=== PATIENT | female | born 1945 | race Asian ===

== ENCOUNTER 2017-12-25 17:04 | Inpatient (IN) | payer MEDICARE, OTHER ==
[~2017-12-25] VITALS: Ht 162.6 cm; Wt 93.9 kg
[2017-12-25] MEDS ORDERED: ALENDRONAT70 MG/75 M PO (21:25)
[2017-12-25] MEDS ORDERED: CALCIUM + D SO1 EACH PO (21:48)
[2017-12-25] MEDS ORDERED: AMLODIPINE BESYL5 MG ORAL (21:48)
[2017-12-25] MEDS ORDERED: VITAMIN B-12500 MCG ORAL (21:48)
[2017-12-25] MEDS ORDERED: BACLOFEN10 MG ORAL (21:48)
[2017-12-25] MEDS ORDERED: IBUPROFEN200 M2 ORAL (21:48)
[2017-12-25] MEDS ORDERED: ARTIFICIAL TEA1 EAC2 OP (21:48)
[2017-12-25] MEDS ORDERED: GABAPENTIN300 MG ORAL (21:48)
[2017-12-25] MEDS ORDERED: ALPHAGAN P5 M2 OP (21:48)
[2017-12-25] MEDS ORDERED: BENAZEPRIL HCL20 MG ORAL (21:48)
[2017-12-25] MEDS ORDERED: ASPIRIN-LOW81 MG ORAL (21:48)
[2017-12-25] MEDS ORDERED: BEPREVE10 ML OP (21:48)
[2017-12-25] MEDS ORDERED: FERROUS SULFAT325 M2 ORAL (21:48)
[2017-12-25] MEDS ORDERED: MULTIVITAMINS1 EAC2 ORAL (21:49)
[2017-12-25] MEDS ORDERED: METFORMIN HCL1000 M1 ORAL (21:49)
[2017-12-25] MEDS ORDERED: OXYBUTYNIN CHLO10 MG PO (21:49)
[2017-12-25] MEDS ORDERED: LOTEMAX1 DROP OP (21:49)
[2017-12-25] MEDS ORDERED: THIAMINE HCL50 MG PO (21:49)
[2017-12-25] MEDS ORDERED: OMEPRAZOLE10 M1 ORAL (21:49)
[2017-12-25 23:09] LABS: ANION GAP 9 mmol/L (5-15); BLOOD UREA NITROGEN 35 mg/dL (7-18); CALCIUM 9.7 MG/DL (8.5-10.1); CARBON DIOXIDE 24 MMOL/L (21-32); CHLORIDE 109 MMOL/L (98-107); CREATININE 1.5 MG/DL (0.55-1.30); POTASSIUM 3.9 MMOL/L (3.5-5.1); SODIUM 142 MMOL/L (136-145)
[2017-12-25 23:15] LABS: BASOPHILS % (AUTO) 1.4 % (0.0-2.0); EOSINOPHILS % (AUTO) 5.1 % (0.0-3.0); HEMATOCRIT 36.3 % (37.0-47.0); HEMOGLOBIN 12.4 G/DL (12.0-16.0); LYMPHOCYTES % (AUTO) 24.6 % (20.0-45.0); MEAN CORPUSCULAR VOLUME 86 FL (80-99); NEUTROPHILS % (AUTO) 60.9 % (45.0-75.0); PLATELET COUNT 276 K/UL (150-450); RED BLOOD COUNT 4.24 M/UL (4.20-5.40); RED CELL DISTRIBUTION WIDTH 12.1 % (11.6-14.8); WHITE BLOOD COUNT 9.4 K/UL (4.8-10.8)
[2017-12-25 23:16] LABS: ALANINE AMINOTRANSFERASE 11 U/L (12-78); ALBUMIN 3.2 G/DL (3.4-5.0); ALBUMIN/GLOBULIN RATIO 0.6 (1.0-2.7); ALKALINE PHOSPHATASE 48 U/L (46-116); ASPARTATE AMINO TRANSFERASE 14 U/L (15-37); BILIRUBIN,TOTAL 0.2 MG/DL (0.2-1.0)
[2017-12-26] VITALS: BP 137/68
[2017-12-26 04:00] VITALS: BP 124/72
[2017-12-26] MEDS: NovoLOG Insulin Flexpen SUBQ SCH ×4 (06:07→20:57)
[2017-12-26 08:00] VITALS: BP 120/75
[2017-12-26] MEDS: metFORMIN 500mg tab ORAL SCH ×2 (09:11→17:46)
[2017-12-26] MEDS: Aspirin EC 81mg tab ORAL SCH (09:14)
[2017-12-26] MEDS: Benazepril 10mg tab ORAL SCH (09:15)
[2017-12-26] MEDS: Vitamin B-12 100mcg tab ORAL SCH (09:15)
[2017-12-26] MEDS: Thiamine 100mg tab ORAL SCH (09:15)
[2017-12-26] MEDS: Brimonidine 0.2% Opth Sol BOTH EYES SCH ×2 (09:16→17:47)
[2017-12-26] MEDS: Calcium Carbonate 500mg w/Vit D 200iu tab ORAL SCH ×2 (09:16→17:46)
[2017-12-26] MEDS: Artificial Tears 1.4% Op Soln BOTH EYES PRN ×2 (09:20→17:46)
[2017-12-26 12:00] VITALS: BP 111/65
[2017-12-26 16:00] VITALS: BP_SYST 109; BP_SYST 149; BP_DIAS 59; BP_DIAS 76
--- NOTE | 2017-12-26 16:50 | Cardiology Report ---
APPROVED REPORT EXAM: Two-dimensional and M-mode echocardiogram with Doppler and color Doppler. INDICATION Chest Pain M-Mode DIMENSIONS IVSd1.7 (0.7-1.1cm)Left Atrium (MM)4.0 (1.6-4.0cm) LVDd4.5 (3.5-5.6cm)Aortic Root3.2 (2.0-3.7cm) PWd1.4 (0.7-1.1cm)Aortic Cusp Exc.1.9 (1.5-2.0cm) IVSs1.7 cm LVDs3.2 (2.5-4.0cm) PWs1.3 cm Normal left ventricular chamber size, systolic function and wall motion. Left ventricular ejection fraction estimated to be 55-60 %. No left ventricular hypertrophy . No evidence of pericardial effusion. All other cardiac chamber sizes are within normal limits. Focal aortic valve sclerosis with adequate cusp excursion. Thickened mitral valve leaflets with normal excursion. Mitral annulus and aortic root calcification. Normal pulmonic valve structure. Normal tricuspid valve structure. IVC at size 1.5 cm with physiologic collapse. A color flow and spectral Doppler study was performed and revealed: No aortic insufficiency . Trace mitral regurgitation. Mitral diastolic velocities suggest reduced left ventricular relaxation c/w mild LV diastolic dysfunction (Grade I ). Trace tricuspid regurgitation. Tricuspid systolic velocities suggests peak right ventricular systolic pressure of 16 mmHg.
--- NOTE | 2017-12-26 16:56 | Cardiology Report ---
APPROVED REPORT EKG Measurement Heart [id number] Normal sinus rhythm Normal ECG
[2017-12-26 20:00] VITALS: BP 102/58
--- NOTE | 2017-12-26 23:47 | Consultation ---
History of Present Illness General Date patient seen: Dec 26, 2017 Present Illness HPI 72-year-old who came to the hospital for her chest pain and weakness. the pt was paresh make up and was well groomed. the pt stated that she feels anxiety at times. Allergies: Coded Allergies: NO KNOWN ALLERGIES (Verified Allergy, Unknown, 12/25/17) Medication History Scheduled Alendronate Sodium (Alendronate Sodium), 70 MG PO ONCE A WEEK, (Reported) Amlodipine Besylate* (Amlodipine Besylate*), 5 MG ORAL DAILY, (Reported) Aspirin (Aspirin EC), 81 MG ORAL DAILY, (Reported) Baclofen* (Baclofen*), 10 MG ORAL THREE TIMES A DAY, (Reported) Benazepril Hcl* (Benazepril Hcl*), 20 MG ORAL DAILY, (Reported) Bepotastine Besilate (Bepreve), 1 DROP OP DAILY, (Reported) Ca Carbonate/Vitamin D3/Vit K (Calcium + D Soft Chewable Tab), 1 EACH PO BID, ( Reported) Cyanocobalamin (Vitamin B-12)* (Vitamin B-12*), 100 MCG ORAL DAILY, (Reported) Dextran 70/Hypromellose (Artificial Tears), 1 DROP OP Q4HR, (Reported) Ferrous Sulfate (Ferrous Sulfate), 325 MG ORAL DAILY, (Reported) Gabapentin* (Gabapentin*), 300 MG ORAL BEDTIME, (Reported) Ibuprofen (Ibuprofen), 800 MG ORAL Q6HR, (Reported) Loteprednol Etabonate (Lotemax), 1 DROP OP DAILY, (Reported) Metformin Hcl* (Metformin Hcl*), 1,000 MG ORAL BID, (Reported) Multivitamins* (Multivitamins*), 1 TAB ORAL DAILY, (Reported) Omeprazole (Omeprazole), Unknown Dose ORAL DAILY, (Reported) Oxybutynin Chloride (Oxybutynin Chloride Er), 10 MG PO BEDTIME, (Reported) Thiamine Hcl (Thiamine Hcl), 100 MG PO DAILY, (Reported) Miscellaneous Medications Brimonidine Tartrate (Alphagan P), 1 DROP OP, (Reported) Patient History History Provided By: Patient, Medical Record, PMD Healthcare decision maker N Resuscitation status Full Code Advanced Directive on File No Past Medical/Surgical History Past Medical/Surgical History: (1) Abnormal EKG Review of Systems Psychiatric: Reports: prior hx, anxiety Physical Exam General Appearance: WD/WN, no apparent distress, alert, obese Neurologic: oriented x 3, responsive, normal mood/affect Last 24 Hour Vital Signs Date Time Temp Pulse Resp B/P (MAP) Pulse Ox O2 Delivery O2 Flow Rate FiO2 12/26/17 21:00 Room Air 12/26/17 20:00 97.5 65 20 102/58 (73) 93 12/26/17 20:00 67 12/26/17 16:00 68 12/26/17 16:00 97.5 67 18 109/59 (76) 97 12/26/17 12:00 98.1 68 18 111/65 (80) 100 12/26/17 12:00 67 12/26/17 09:15 120/75 12/26/17 09:15 92 120/75 12/26/17 09:00 Room Air 12/26/17 08:00 98.6 92 18 120/75 (90) 100 12/26/17 08:00 74 12/26/17 04:00 96.9 73 16 124/72 (89) 97 12/26/17 04:00 76 12/26/17 00:00 75 12/26/17 00:00 97.2 85 16 137/68 (91) 97 Intake and Output 12/25/17 12/26/17 19:00 07:00 Intake Total 200 ml Balance 200 ml Intake Oral 200 ml # Voids 2 Laboratory Tests Test 12/26/17 07:00 Hemoglobin A1c 7.1 % (4.3-6.0) H Troponin I 0.017 ng/mL (0.000-0.056) Height (Feet): 5 Height (Inches): 4.00 Weight (Pounds): 207 Medications Current Medications Medications (Trade) Dose Ordered Sig/Bonnie Route PRN Reason Start Time Stop Time Status Last Admin Dose Admin Acetaminophen (Tylenol) 650 mg Q4H PRN ORAL Mild Pain/Temp > 100.5 12/25/17 23:45 01/24/18 23:44 Alendronate Sodium (Fosamax) 70 mg QWEEK@0630 ORAL 12/30/17 06:30 01/29/18 06:29 Amlodipine Besylate (Norvasc) 5 mg DAILY ORAL 12/26/17 09:00 01/25/18 08:59 11/14/18 09:15 Artificial Tears (Akwa-Tears) 1 drop Q4H PRN BOTH EYES Dry Eyes 12/26/17 00:15 01/25/18 00:14 12/26/17 17:46 Aspirin (Ecotrin) 81 mg DAILY ORAL 12/26/17 09:00 01/25/18 08:59 12/26/17 09:14 Baclofen (Lioresal) 10 mg THREE TIMES A DAY ORAL 12/26/17 09:00 01/25/18 08:59 12/26/17 17:45 Benazepril HCl (Lotensin) 20 mg DAILY ORAL 12/26/17 09:00 01/25/18 08:59 12/26/17 09:15 Brimonidine Tartrate (Alphagan) 1 drop BID BOTH EYES 12/26/17 09:00 01/25/18 08:59 12/26/17 17:47 Calcium Carbonate (OsCal D) 1 tab BID ORAL 12/26/17 09:00 01/25/18 08:59 12/26/17 17:46 Cyanocobalamin (Vitamin B-12 Tab) 100 mcg DAILY ORAL 12/26/17 09:00 01/25/18 08:59 12/26/17 09:15 Dextrose (Dextrose 50%) 25 ml Q30M PRN IV Hypoglycemia 12/25/17 23:45 01/24/18 23:44 Dextrose (Dextrose 50%) 50 ml Q30M PRN IV Hypoglycemia 12/25/17 23:45 01/24/18 23:44 Ferrous Sulfate (Feosol) 325 mg DAILY ORAL 12/26/17 09:00 01/25/18 08:59 12/26/17 09:11 Gabapentin (Neurontin) 300 mg BEDTIME ORAL 12/26/17 21:00 01/25/18 20:59 12/26/17 20:56 Ibuprofen (Motrin) 800 mg Q6H PRN ORAL Moderate Pain (Pain Scale 4-6) 12/26/17 00:00 01/25/18 00:00 Insulin Aspart (NovoLOG) BEFORE MEALS AND HS SUBQ 12/26/17 06:30 01/25/18 06:29 Metformin HCl (Glucophage) 1,000 mg BID ORAL 12/26/17 09:00 01/25/18 08:59 12/26/17 17:46 Multivitamins (Multivitamins) 1 tab DAILY ORAL 12/26/17 09:00 01/25/18 08:59 12/26/17 09:15 Ondansetron HCl (Zofran) 4 mg Q6H PRN IVP Nausea & Vomiting 12/25/17 23:45 01/24/18 23:44 Oxybutynin Chloride (Ditropan) 5 mg BID ORAL 12/27/17 09:00 01/26/18 08:59 Pantoprazole (Protonix) 40 mg DAILY ORAL 12/26/17 09:00 01/25/18 08:59 12/26/17 09:11 Thiamine HCl (Vitamin B1) 100 mg DAILY ORAL 12/26/17 09:00 01/25/18 08:59 12/26/17 09:15 Assessment/Plan Assessment/Plan Anxiety d/o ativan prn provided ro/Teresa Hua MD Dec 26, 2017 23:47
[2017-12-27] VITALS: BP 100/54
[2017-12-27 04:00] VITALS: BP 115/71
[2017-12-27] MEDS: NovoLOG Insulin Flexpen SUBQ SCH ×4 (05:51→21:00)
--- NOTE | 2017-12-27 06:30 | History and Physical Report ---
DATE OF ADMISSION: 12/25/2017 NOTE: POOR AUDIO HISTORY OF PRESENT ILLNESS: This is a 72-year-old who came to the hospital for her chest pain . The patient is currently alert and awake, comfortable, no distress. PAST MEDICAL HISTORY: Hypertension, CHF, . MEDICATIONS: See the list. PHYSICAL EXAMINATION: GENERAL: This is an elderly female, who is currently sitting in the bed, comfortable, no chest pain. VITAL SIGNS: Blood pressure is 120/70, pulse 74, and respirations 18. SKIN: Good skin turgor. HEENT: NAD. CHEST: Bilaterally clear. CARDIOVASCULAR: Regular rhythm. No gallop. No murmur. ABDOMEN: Soft. Positive bowel sounds. Nontender. EXTREMITIES: CCE. NEUROLOGIC: The patient is in no focal deficit. GENITOURINARY: Deferred. LABORATORY DATA: Her troponins are negative. CBC and CMP also unremarkable. ASSESSMENT: 1. Chest pain. 2. Abnormal EKG. 3. Urinary tract infection. 4. Hypertension. 5. Generalized weakness. PLAN: 1. We will admit on telemetry bed. 2. Rule out of myocardial infarction. 3. Consider Cardiology consult. 4. Check 2D echo and stress test. 5. Discussed with Dr. Winter. Benjy Chester M.D. DR: CAYETANO JOB#: [id number] CC:
[2017-12-27 08:00] VITALS: BP 126/64
[2017-12-27 08:29] LABS: ANION GAP 7 mmol/L (5-15); BLOOD UREA NITROGEN 30 mg/dL (7-18); CALCIUM 10.6 MG/DL (8.5-10.1); CARBON DIOXIDE 27 MMOL/L (21-32); CHLORIDE 106 MMOL/L (98-107); CREATININE 1.5 MG/DL (0.55-1.30); POTASSIUM 4.1 MMOL/L (3.5-5.1); SODIUM 140 MMOL/L (136-145)
[2017-12-27] MEDS: Benazepril 10mg tab ORAL SCH (08:56)
[2017-12-27] MEDS: Brimonidine 0.2% Opth Sol BOTH EYES SCH ×2 (08:56→17:45)
[2017-12-27] MEDS: metFORMIN 500mg tab ORAL SCH ×2 (08:57→17:47)
[2017-12-27] MEDS: Thiamine 100mg tab ORAL SCH (08:57)
[2017-12-27] MEDS: Oxybutynin 5mg tab ORAL SCH ×2 (08:57→17:46)
[2017-12-27] MEDS: Aspirin EC 81mg tab ORAL SCH (08:57)
[2017-12-27] MEDS: Vitamin B-12 100mcg tab ORAL SCH (08:57)
[2017-12-27] MEDS: Calcium Carbonate 500mg w/Vit D 200iu tab ORAL SCH ×2 (08:57→17:46)
[2017-12-27] MEDS: Artificial Tears 1.4% Op Soln BOTH EYES PRN ×2 (11:15→15:29)
[2017-12-27 12:00] VITALS: BP 105/73
[2017-12-27 16:00] VITALS: BP 110/60
--- NOTE | 2017-12-27 18:14 | Cardiology Progress Note ---
Assessment/Plan Assessment/Plan The patient is seen and examined, full consult note is dictated. Objective Last 24 Hour Vital Signs Date Time Temp Pulse Resp B/P (MAP) Pulse Ox O2 Delivery O2 Flow Rate FiO2 12/27/17 16:00 98.0 63 21 110/60 (77) 98 12/27/17 16:00 64 12/27/17 12:00 98.1 84 19 105/73 (84) 98 12/27/17 12:00 76 12/27/17 09:00 Room Air 12/27/17 08:57 69 126/64 12/27/17 08:56 126/64 12/27/17 08:00 97.1 69 20 126/64 (84) 94 12/27/17 08:00 68 12/27/17 04:00 65 12/27/17 04:00 97.5 60 20 115/71 (86) 100 12/27/17 00:00 97.5 60 20 100/54 (69) 96 12/27/17 00:00 61 12/26/17 21:00 Room Air 12/26/17 20:00 97.5 65 20 102/58 (73) 93 12/26/17 20:00 67 Intake and Output 12/26/17 12/27/17 19:00 07:00 Intake Total 480 ml 200 ml Balance 480 ml 200 ml Intake Oral 480 ml 200 ml # Voids 3 1 Laboratory Tests Test 12/27/17 07:55 Sodium Level 140 MMOL/L (136-145) Potassium Level 4.1 MMOL/L (3.5-5.1) Chloride Level 106 MMOL/L (98-107) Carbon Dioxide Level 27 MMOL/L (21-32) Anion Gap 7 mmol/L (5-15) Blood Urea Nitrogen 30 mg/dL (7-18) H Creatinine 1.5 MG/DL (0.55-1.30) H Estimat Glomerular Filtration Rate mL/min (>60) Glucose Level 138 MG/DL (74-106) H Calcium Level 10.6 MG/DL (8.5-10.1) H Microbiology Date/Time Source Procedure Growth Status 12/25/17 22:40 Rectal Mucosa VRE Culture Pending Resulted 12/25/17 22:40 Rectal Mucosa - Preliminary Resulted Frederic Winter MD Dec 27, 2017 18:14
--- NOTE | 2017-12-27 19:53 | General Progress Note ---
Assessment/Plan Assessment/Plan Anxiety d/o ativan prn provided ro/st Subjective Date patient seen: Dec 27, 2017 Neurologic/Psychiatric: Reports: anxiety, emotional problems Allergies: Coded Allergies: NO KNOWN ALLERGIES (Verified Allergy, Unknown, 12/25/17) Objective Last 24 Hour Vital Signs Date Time Temp Pulse Resp B/P (MAP) Pulse Ox O2 Delivery O2 Flow Rate FiO2 12/27/17 16:00 98.0 63 21 110/60 (77) 98 12/27/17 16:00 64 12/27/17 12:00 98.1 84 19 105/73 (84) 98 12/27/17 12:00 76 12/27/17 09:00 Room Air 12/27/17 08:57 69 126/64 12/27/17 08:56 126/64 12/27/17 08:00 97.1 69 20 126/64 (84) 94 12/27/17 08:00 68 12/27/17 04:00 65 12/27/17 04:00 97.5 60 20 115/71 (86) 100 12/27/17 00:00 97.5 60 20 100/54 (69) 96 12/27/17 00:00 61 12/26/17 21:00 Room Air 12/26/17 20:00 97.5 65 20 102/58 (73) 93 12/26/17 20:00 67 Intake and Output 12/26/17 12/27/17 18:59 06:59 Intake Total 480 ml 200 ml Balance 480 ml 200 ml Intake Oral 480 ml 200 ml # Voids 3 1 Laboratory Tests 12/27/17 07:55: Sodium Level 140, Potassium Level 4.1, Chloride Level 106, Carbon Dioxide Level 27, Anion Gap 7, Blood Urea Nitrogen 30H, Creatinine 1.5H, Estimat Glomerular Filtration Rate , Glucose Level 138H, Calcium Level 10.6H Height (Feet): 5 Height (Inches): 4.00 Weight (Pounds): 207 General Appearance: no apparent distress, alert Neurologic: oriented x 3, responsive, depressed affect Teresa Longo MD Dec 27, 2017 19:53
[2017-12-27 20:00] VITALS: BP 93/54
[2017-12-27] MEDS ORDERED: LORazepam 1mg tab ORAL PRN (20:00)
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
--- NOTE | 2017-12-27 23:15 | Progress Note ---
NOTE: POOR AUDIO SUBJECTIVE: This is an elderly female, sitting in bed, comfortable. No chest pain. . OBJECTIVE: CHEST: Bilaterally clear. CARDIOVASCULAR: Regular rate and rhythm. ABDOMEN: Soft. Positive bowel sounds. EXTREMITIES: CCE. NEUROLOGIC: No focal deficit. ASSESSMENT: 1. Acute coronary syndrome. 2. Hypertension. 3. Abnormal EKG. PLAN: The patient's pin maker on case. Cardiac workup is pending. Continue current treatment. Benjy Chester M.D. DR: JEMMA JOB#: [id number] CC:
[2017-12-28] VITALS: BP 94/55
[2017-12-28 04:00] VITALS: BP 111/56
[2017-12-28] MEDS: NovoLOG Insulin Flexpen SUBQ SCH ×4 (06:30→17:35)
[2017-12-28 08:00] VITALS: BP 123/67
[2017-12-28] MEDS ORDERED: Lexiscan 0.4mg/5ml syringe IV PRN (08:26)
[2017-12-28] MEDS: metFORMIN 500mg tab ORAL SCH ×2 (10:20→17:28)
[2017-12-28] MEDS: Thiamine 100mg tab ORAL SCH (10:20)
[2017-12-28] MEDS: Benazepril 10mg tab ORAL SCH (10:20)
[2017-12-28] MEDS: Oxybutynin 5mg tab ORAL SCH ×2 (10:21→17:28)
[2017-12-28] MEDS: Aspirin EC 81mg tab ORAL SCH (10:21)
[2017-12-28] MEDS: Vitamin B-12 100mcg tab ORAL SCH (10:21)
[2017-12-28] MEDS: Brimonidine 0.2% Opth Sol BOTH EYES SCH ×2 (10:38→17:29)
[2017-12-28] MEDS: Calcium Carbonate 500mg w/Vit D 200iu tab ORAL SCH ×2 (10:38→17:28)
--- NOTE | 2017-12-28 11:27 | General Progress Note ---
Assessment/Plan Status: stable Assessment/Plan Anxiety d/o ativan prn provided ro/st Subjective Date patient seen: Dec 28, 2017 Neurologic/Psychiatric: Reports: anxiety, emotional problems Allergies: Coded Allergies: NO KNOWN ALLERGIES (Verified Allergy, Unknown, 12/25/17) Subjective the pt was somewhat agitated and was worried about her heart condition . Objective Last 24 Hour Vital Signs Date Time Temp Pulse Resp B/P (MAP) Pulse Ox O2 Delivery O2 Flow Rate FiO2 12/28/17 10:20 123/67 12/28/17 08:00 98.2 69 18 123/67 (85) 96 12/28/17 04:00 97.2 65 18 111/56 (74) 98 12/28/17 03:53 62 12/28/17 00:00 96.3 61 18 94/55 (68) 99 12/28/17 00:00 63 12/27/17 21:00 Room Air 12/27/17 20:00 60 12/27/17 20:00 97.7 61 18 93/54 (67) 97 12/27/17 16:00 98.0 63 21 110/60 (77) 98 12/27/17 16:00 64 12/27/17 12:00 98.1 84 19 105/73 (84) 98 12/27/17 12:00 76 Intake and Output 12/27/17 12/28/17 19:00 07:00 Intake Total 600 ml Balance 600 ml Intake Oral 600 ml # Voids 2 Height (Feet): 5 Height (Inches): 4.00 Weight (Pounds): 207 General Appearance: alert, moderate distress Neurologic: oriented x 3, responsive, depressed affect Teresa Longo MD Dec 28, 2017 11:27
[2017-12-28 12:00] VITALS: BP 105/60
[2017-12-28] MEDS ORDERED: Lexiscan 0.4mg/5ml syringe IV SCH (13:15)
--- NOTE | 2017-12-28 15:43 | Diagnostic Imaging Report ---
Indications: Chest pain Technique: Single day single isotope protocol utilized. Initially, resting images obtained using IV administration 10.6 millicuries 99M technetium Myoview. Subsequently, patient underwent lexiscan stress testing. See cardiology report for details. During Lexiscan infusion, IV administration 32.1 mCi 99 M technetium Myoview. SPECT and planar images obtained. SPECT images gated to 8 phases of the cardiac cycle were also obtained, and reformatted into cine images for evaluation of ejection fraction. Comparison: none Findings: Presence or absence of symptoms during infusion is not described on the cardiology report. Per cardiology report, resting EKG demonstrates normal sinus rhythm. Presence or absence of EKG changes during infusion not described. Imaging demonstrates normal poststress perfusion, no fixed nor reversible post stress perfusion defects. Normal cardiac chamber size.. Calculated post stress ejection fraction 80%. No focal wall motion abnormality Impression: Nonischemic clinical response to pharmacologic stress, per cardiology report Nonischemic electrocardiographic response to pharmacologic stress, per cardiology report No imaging findings to suggest ischemia, at level of stress achieved. Calculated post stress ejection fraction greater than 70%
[2017-12-28 16:00] VITALS: BP 123/68
--- NOTE | 2017-12-28 16:51 | Cardiology Progress Note ---
Assessment/Plan Assessment/Plan 1. Atypical chest pain. non-ischemic Lexiscan Stress Cardiolite. 2D echocardiography reveals normal LV systolic function with LVEF of 55%. 2. History of diabetes mellitus. Continue aspirin and atorvastatin. 5. History of hypertension. Continue amlodipine and benazepril. Subjective Subjective Sinus rhythm at rate of 76. Objective Last 24 Hour Vital Signs Date Time Temp Pulse Resp B/P (MAP) Pulse Ox O2 Delivery O2 Flow Rate FiO2 12/28/17 12:00 76 12/28/17 12:00 98.2 75 18 105/60 (75) 96 12/28/17 10:20 123/67 12/28/17 09:00 Room Air 12/28/17 08:00 98.2 69 18 123/67 (85) 96 12/28/17 08:00 65 12/28/17 04:00 97.2 65 18 111/56 (74) 98 12/28/17 03:53 62 12/28/17 00:00 96.3 61 18 94/55 (68) 99 12/28/17 00:00 63 12/27/17 21:00 Room Air 12/27/17 20:00 60 12/27/17 20:00 97.7 61 18 93/54 (67) 97 Intake and Output 12/27/17 12/28/17 19:00 07:00 Intake Total 600 ml Balance 600 ml Intake Oral 600 ml # Voids 2 2D Echo: LVEF 55%, MIld LVH, Mild MR, RVSP 30 mmHg, Grade I LVDD Microbiology Date/Time Source Procedure Growth Status 12/25/17 22:40 Nasal Nares MRSA Culture - Final NO METHICILLIN RESISTANT STAPH AUREUS... Complete 12/25/17 22:40 Rectal Mucosa VRE Culture - Final NO VANCOMYCIN RESISTANT ENTEROCOCCUS ... Complete 12/25/17 22:40 Rectal Mucosa - Final NO CARBAPENEM-RESISTANT ENTEROBACTERI... Complete Objective HEENT: Atraumatic and normocephalic. Anicteric. Pupils are equal, round, and reactive to light and accommodation. Extraocular muscles intact. NECK: JVP less than 5 cm. No carotid bruit. Carotid upstrokes 2+ bilaterally. CARDIOVASCULAR: Normal S1 and S2. Regular rate and rhythm. No murmurs, gallops, or rubs. PMI is at fourth intercostal space at midclavicular line. LUNGS: Clear to auscultation bilaterally. ABDOMEN: Soft, nontender, and nondistended. No hepatosplenomegaly. Positive bowel sounds. EXTREMITIES: No evidence of edema, clubbing, or cyanosis. Frederic Winter MD Dec 28, 2017 16:51
--- NOTE | 2017-12-28 20:00 | Progress Note ---
DATE: 12/28/2017 SUBJECTIVE: This is an elderly female, currently in bed, comfortable, in no distress. OBJECTIVE: VITAL SIGNS: Blood pressure 105/60, pulse 76, respirations 18, saturation , temperature 98.2. HEENT: NAD. CHEST: Bilaterally clear. CARDIOVASCULAR: Regular rhythm. No gallop. No murmur. ABDOMEN: Soft. EXTREMITIES: No CCE. NEUROLOGICAL: Generalized weakness. ASSESSMENT: 1. ACS. 2. Hypertension. 3. Depression. 4. 5. Dehydration. PLAN: We will currently continue current medical treatment. Continue oxybutynin, gabapentin, Norvasc, aspirin, diclofenac, metformin. Cardiology on the case, waiting for Lexiscan. Discharge plan to home. If the stress test is negative, she will go to [facility] and follow up with outpatient. Benjy Chester M.D. DR: Kenna JOB#: [id number] CC:
[2017-12-28] MEDS ORDERED: Atorvastatin 20mg tab ORAL SCH (21:00)
--- NOTE | 2017-12-31 09:19 | Discharge Summary ---
Discharge Summary Discharge Summary _ DATE OF ADMISSION: 12/25/2017 DATE OF DISCHARGE: 12/28/2017 REASON FOR ADMISSION: 72 years old female with past medical history of hypertension, diabetes mellitus , congestive heart failure was sent from the halfway facility for evaluation of chest pain. Upon evaluation EKG revealed normal sinus rhythm, no acute ischemic changes; troponin was negative. Due to multiply risk factors including hypertension and diabetes , patient admitted with diagnosis of chest, pain rule out acute coronary syndrome, hypertension ,diabetes mellitus.. CONSULTANTS: advertising job titles Dr. Winter psychiatrist [facility] COURSE: Patient admitted to telemetry floor. Serial troponin were negative. EKG revealed no acute ischemic changes . Patient therefore was ruled out for acute SD. [facility] closely followed. Patient undergone echocardiogram , which revealed preserved ejection fraction 55 -60% and right ventricular systolic pressure of 30. No evidence of wall motion abnormalities. Grade 1 diastolic dysfunction. Subsequently patient undergone stress test. Stress test was nonischemic. According to advertising job titles, patient had atypical chest pain, nonischemic. Patient was continue on antiplatelet therapy with aspirin and statin. Blood pressure was managed with calcium channel abram and CATHRYN inhibitor. Blood sugar was managed with sliding scale of insulin on as needed basis. Hemoglobin A1c at goal 7.1. GI prophylaxis provided. Psychiatrist seen the patient and diagnosed patient with anxiety. Reality orientation and supportive therapy provided. Patient received anxiolytics on as needed basis. Patient had no further chest pain episodes. . Patient was discharged to halfway facility for continuation of care FINAL DIAGNOSES: Atypical chest pain, nonischemic, possibly due to anxiety ( Acute coronary syndrome was ruled out) Hypertension Diabetes mellitus Anxiety disorder DISCHARGE MEDICATIONS: See Medication Reconciliation list. DISCHARGE INSTRUCTIONS: Patient was discharged to the halfway facility. Follow up with medical doctor at the facility. I have been assigned to dictate discharge summary for this account. I was not involved in the patient's management. Kristen Rodriguez NP Dec 31, 2017 09:19
== END 2017-12-28 19:45 | DRG 313 ==
LOC: 2E 20:50
DX: R07.89 Other chest pain (principal); N39.0 Urinary tract infection, site not specified; I13.0 Hypertensive heart and chronic kidney disease with heart failure and stage 1 through stage 4 chronic kidney disease, or unspecified chronic kidney disease; F41.9 Anxiety disorder, unspecified; I50.9 Heart failure, unspecified; M19.90 Unspecified osteoarthritis, unspecified site; G62.9 Polyneuropathy, unspecified; M81.0 Age-related osteoporosis without current pathological fracture; E11.22 Type 2 diabetes mellitus with diabetic chronic kidney disease; N18.9 Chronic kidney disease, unspecified; Z79.84 Long term (current) use of oral hypoglycemic drugs; E78.5 Hyperlipidemia, unspecified; E86.0 Dehydration
CPT/HCPCS: 36415; 78452; 80048; 80053; 82962; 83036; 84484; 85025; 87081; 93005; 93017; 93306; J1815; J2785